=== PATIENT | male | born 1970 | race Caucasian/White ===

== ENCOUNTER 2018-07-22 16:39 | Emergency (ER) | payer MEDICAID ==
[~2018-07-22] VITALS: Ht 177.8 cm; Wt 86.4 kg
[2018-07-22 17:48] VITALS: BP 148/94
== END 2018-07-22 18:20 | disposition home or self-care (01) ==
LOC: EMS 16:41
DX: I11.9 Hypertensive heart disease without heart failure (principal); I25.2 Old myocardial infarction; F14.90 Cocaine use, unspecified, uncomplicated; F19.90 Other psychoactive substance use, unspecified, uncomplicated; F15.90 Other stimulant use, unspecified, uncomplicated; F17.210 Nicotine dependence, cigarettes, uncomplicated
CPT/HCPCS: 99406

== ENCOUNTER 2018-09-13 21:44 | Emergency (ER) | payer MEDICAID ==
[~2018-09-13] VITALS: Ht 180.3 cm; Wt 89.1 kg
[2018-09-13 22:24] VITALS: BP 145/95
== END 2018-09-14 00:44 | disposition left against medical advice (07) ==
LOC: EMS 21:44
DX: K08.89 Other specified disorders of teeth and supporting structures (principal); Z53.21 Procedure and treatment not carried out due to patient leaving prior to being seen by health care provider